=== PATIENT | female | born 2000 | race Caucasian/White ===

== ENCOUNTER 2021-01-09 10:37 | Emergency (ER) | payer OTHER ==
[2021-01-09 11:42] LABS: HEMOGLOBIN 14.5 gm/dl (12.3-15.3); RED BLOOD COUNT 4.8 M/UL (4.00-5.10); WHITE BLOOD COUNT 8.8 K/UL (4.5-11.0)
[2021-01-09 12:13] LABS: BUN/CREATININE RATIO 12 (0-10)
[2021-01-09] MEDS ORDERED: BENTYL 20MG TAB20 MG PO (12:58)
[2021-01-09] MEDS ORDERED: ZOFRAN4 MG PO (12:58)
== END 2021-01-09 13:07 | disposition home or self-care (01) ==
LOC: ER1 10:37
PROVIDERS: Physician Assistant Medical
DX: R10.30 Lower abdominal pain, unspecified (principal); R11.0 Nausea; F17.290 Nicotine dependence, other tobacco product, uncomplicated; Z79.899 Other long term (current) drug therapy
CPT/HCPCS: 80053; 81001; 84703; 85025; 99284

== ENCOUNTER → 2021-04-20 | Outpatient (CLI) | payer OTHER ==
[~2021-04-20] MED LIST: BENTYL 20MG TAB20 MG PO; ZOFRAN4 MG PO
== END ==
LOC: KOH-I 08:47
DX: R10.9 Unspecified abdominal pain (principal)
CPT/HCPCS: 76700

== ENCOUNTER → 2021-06-03 | Outpatient (CLI) | payer OTHER | LOC: NM 05-20 14:00 | DX: R10.9 Unspecified abdominal pain (principal) | CPT/HCPCS: 78226; A9537 ==